=== PATIENT | male | born 1995 | race Hispanic/Latino ===

== ENCOUNTER 2018-02-26 10:56 | Emergency (ER) | payer SELFPAY ==
[~2018-02-26] VITALS: Ht 165.1 cm; Wt 60.0 kg
[2018-02-26 11:55] VITALS: BP 122/66
== END 2018-02-26 11:55 | disposition home or self-care (01) | DRG 607 ==
LOC: ED 10:56
DX: R23.8 Other skin changes (principal); L55.9 Sunburn, unspecified; X32.XXXA Exposure to sunlight, initial encounter; Y93.H2 Activity, gardening and landscaping